=== PATIENT | female | born 1950 | race Asian ===

== ENCOUNTER 2023-10-21 10:03 | Inpatient (IN) | payer OTHER, MEDICAID ==
[~2023-10-21] VITALS: Ht 172.7 cm; Wt 74.4 kg
[2023-10-21] MEDS ORDERED: dilTIAZem HCL IVP 5 MG/ML VIAL ONE (10:18)
[2023-10-21 10:19] VITALS: BP_SYST 114; PULSE 202; RESP 21; TEMP 97.7; O2SAT 99
[2023-10-21] MEDS: dilTIAZem HCL IVP 5 MG/ML VIAL IVP ONE ×2 (10:22→11:29)
[2023-10-21] MEDS: DILTIAZEM HCL 60 MG TABLET PO ONE (10:36)
[2023-10-21 11:03] LABS: BASOPHILS % (AUTO) 0.4 % (0.0-2.0); EOSINOPHILS # (AUTO) 0.1 K/uL (0.0-0.4); HEMATOCRIT 42.1 % (36-48); LYMPHOCYTES # (AUTO) 1.8 K/uL (1.0-5.5); MEAN CORPUSCULAR HEMOGLOBIN 30 pg (27-31); MEAN CORPUSCULAR HGB CONC 33 % (32-36); MEAN CORPUSCULAR VOLUME 89 fL (79.0-98.0); MONOCYTES # (AUTO) 0.6 K/uL (0.0-1.0); MONOCYTES % (AUTO) 9.4 % (1.7-9.3); NEUTROPHILS # (AUTO) 3.7 K/uL (1.8-7.7); NEUTROPHILS % (AUTO) 59.2 % (40.0-70.0); PLATELET COUNT (AUTO) 357 K/uL (130-430); RED BLOOD CELL COUNT(AUTO) 4.71 MIL/uL (4.2-6.2); RED CELL DISTRIBUTION WIDTH 13.6 % (9.0-15.0); WHITE BLOOD COUNT (AUTO) 6.3 K/uL (4.8-10.8)
[2023-10-21 11:21] LABS: PROTHROMBIN TIME 10.4 SECS (9.5-12.5)
[2023-10-21 11:40] LABS: ALANINE AMINOTRANSFERASE 22 U/L (12-78); ALBUMIN 2.9 g/dL (3.4-4.8); ANION GAP 12 (5-15); ASPARTATE AMINOTRANSFERASE 13 U/L (10-37); CALCIUM 8.4 mg/dL (8.4-11.0); CARBON DIOXIDE 24 mmol/L (23-29); CHLORIDE 108 mmol/L (98-107); CREATININE 0.73 mg/dL (0.55-1.30); GLUCOSE 145 mg/dL (74-106); POTASSIUM 3.6 mmol/L (3.5-5.1); SODIUM SERUM 144 mmol/L (136-145); TOTAL BILIRUBIN 0.4 mg/dL (0.0-1.0); UREA NITROGEN, BLOOD 13 mg/dL (8-21)
[2023-10-21 11:42] LABS: BILIRUBIN,DIRECT 0.1 mg/dL (0.0-0.3)
[2023-10-21] MEDS ORDERED: ONDANSETRON HCL 4 MG/2 ML VIAL IVP PRN (12:45)
[2023-10-21] MEDS ORDERED: MUPIROCIN 2% TOPICAL OINTMENT 22 GM NS PRN (12:45)
[2023-10-21] MEDS ORDERED: POTASSIUM CHLORIDE 20 MEQ TABLET.ER PO PRN (12:45)
[2023-10-21] MEDS ORDERED: DOCUSATE SODIUM 100 MG CAPSULE PO PRN (12:45)
[2023-10-21] MEDS ORDERED: MORPHINE 2 MG/ML INJ. SYRINGE IVP PRN ×2 (12:45)
[2023-10-21] MEDS ORDERED: MAGNESIUM SULFATE 50 ML IV PRN (12:45)
[2023-10-21] MEDS ORDERED: LORazepam 2 MG/ML VIAL IVP PRN (12:45)
[2023-10-21] MEDS ORDERED: ACETAMINOPHEN 325 MG TABLET PO PRN (12:45)
[2023-10-21] MEDS ORDERED: ROSU10TA72 PO (13:59)
[2023-10-21] MEDS ORDERED: NITR0.4T47 SL (13:59)
[2023-10-21] MEDS ORDERED: OLME5TAB29 PO (13:59)
[2023-10-21] MEDS: DIGOXIN 0.5 MG/2 ML AMP IVP ONE (14:30)
[2023-10-21] MEDS ORDERED: AMMONIA 1 EA TOWELETTE INH ONE (19:43)
[2023-10-21 21:00] VITALS: BP_SYST 111; PULSE 87; RESP 12; RESP 18; TEMP 98.4; O2SAT 96; O2SAT 97
[2023-10-21 22:00] VITALS: BP_SYST 123; PULSE 97; RESP 19; O2SAT 96
[2023-10-21] MEDS: HEPARIN SODIUM,PORCINE 5,000 UNITS/ML VIAL SUBCUT SCH (22:52)
[2023-10-21 23:00] VITALS: BP_SYST 118; PULSE 95; RESP 23; O2SAT 96
[2023-10-22] VITALS (25 sets, daily range): BP systolic 88–133; PULSE 82–132; RESP 13–26; TEMP 98.4–99.1; O2SAT 92–100
[2023-10-22 06:10] LABS: BASOPHILS % (AUTO) 0.4 % (0.0-2.0); EOSINOPHILS # (AUTO) 0.2 K/uL (0.0-0.4); EOSINOPHILS % (AUTO) 1.8 % (0.0-4.0); HEMATOCRIT 40.8 % (36-48); HEMOGLOBIN 13.6 g/dL (12.0-16.0); LYMPHOCYTES % (AUTO) 23.1 % (20.5-51.5); MEAN CORPUSCULAR HEMOGLOBIN 30 pg (27-31); MEAN CORPUSCULAR HGB CONC 33 % (32-36); MEAN CORPUSCULAR VOLUME 90 fL (79.0-98.0); MONOCYTES # (AUTO) 0.8 K/uL (0.0-1.0); MONOCYTES % (AUTO) 9.1 % (1.7-9.3); NEUTROPHILS # (AUTO) 5.6 K/uL (1.8-7.7); NEUTROPHILS % (AUTO) 65.6 % (40.0-70.0); PLATELET COUNT (AUTO) 349 K/uL (130-430); RED BLOOD CELL COUNT(AUTO) 4.55 MIL/uL (4.2-6.2); RED CELL DISTRIBUTION WIDTH 13.4 % (9.0-15.0); WHITE BLOOD COUNT (AUTO) 8.5 K/uL (4.8-10.8)
[2023-10-22 06:49] LABS: ANION GAP 8 (5-15); CALCIUM 8.2 mg/dL (8.4-11.0); CARBON DIOXIDE 26 mmol/L (23-29); CHLORIDE 110 mmol/L (98-107); GLUCOSE 126 mg/dL (74-106); POTASSIUM 3.6 mmol/L (3.5-5.1); SODIUM SERUM 144 mmol/L (136-145); UREA NITROGEN, BLOOD 19 mg/dL (8-21)
[2023-10-22] MEDS ORDERED: ACETAMINOPHEN 500 MG TABLET PO PRN ×2 (08:00)
[2023-10-22] MEDS ORDERED: FLU VACC QS2023-24(6MOS UP)/PF 0.5 ML/SYR SYRINGE I.M. PRN (09:00)
[2023-10-22] MEDS: DIGOXIN 0.5 MG/2 ML AMP IVP ONE ×3 (09:49→22:04)
[2023-10-22] MEDS: APIXABAN 2.5 MG TABLET PO ONE (09:55)
[2023-10-22] MEDS: APIXABAN 2.5 MG TABLET PO SCH (22:05)
[2023-10-23] VITALS (24 sets, daily range): BP systolic 94–148; PULSE 78–146; RESP 14–26; TEMP 98.1–98.9; O2SAT 91–99
[2023-10-23] MEDS: ACETAMINOPHEN 500 MG TABLET PO PRN (02:50)
[2023-10-23] MEDS: ZOLPIDEM TARTRATE 5 MG TABLET PO PRN (02:51)
[2023-10-23 04:34] LABS: BASOPHILS % (AUTO) 0.3 % (0.0-2.0); EOSINOPHILS # (AUTO) 0.2 K/uL (0.0-0.4); EOSINOPHILS % (AUTO) 2.3 % (0.0-4.0); HEMATOCRIT 38.9 % (36-48); LYMPHOCYTES # (AUTO) 1.8 K/uL (1.0-5.5); LYMPHOCYTES % (AUTO) 20.5 % (20.5-51.5); MEAN CORPUSCULAR HEMOGLOBIN 30 pg (27-31); MEAN CORPUSCULAR HGB CONC 34 % (32-36); MEAN CORPUSCULAR VOLUME 89 fL (79.0-98.0); MONOCYTES # (AUTO) 0.8 K/uL (0.0-1.0); MONOCYTES % (AUTO) 9.1 % (1.7-9.3); NEUTROPHILS % (AUTO) 67.8 % (40.0-70.0); PLATELET COUNT (AUTO) 336 K/uL (130-430); RED BLOOD CELL COUNT(AUTO) 4.36 MIL/uL (4.2-6.2); RED CELL DISTRIBUTION WIDTH 13.5 % (9.0-15.0); WHITE BLOOD COUNT (AUTO) 8.9 K/uL (4.8-10.8)
[2023-10-23 05:25] LABS: ANION GAP 9 (5-15); CALCIUM 8.7 mg/dL (8.4-11.0); CARBON DIOXIDE 26 mmol/L (23-29); CHLORIDE 106 mmol/L (98-107); CREATININE 0.78 mg/dL (0.55-1.30); GLUCOSE 150 mg/dL (74-106); POTASSIUM 3.8 mmol/L (3.5-5.1); SODIUM SERUM 141 mmol/L (136-145); UREA NITROGEN, BLOOD 18 mg/dL (8-21)
[2023-10-23] MEDS ORDERED: DEXTROSE 50% JECT 50 ML DISP.SYRIN IVP PRN (09:00)
[2023-10-23] MEDS: DIGOXIN 0.5 MG/2 ML AMP IVP ONE (11:42)
[2023-10-23] MEDS: DILTIAZEM HCL 60 MG TABLET PO ONE (11:45)
[2023-10-23] MEDS: INSULIN LISPRO SLIDING SCALE 100 UNITS/ML, 3 ML VIAL (humaLOG) SUBCUT PRN (11:58)
[2023-10-23 12:06] LABS: HEPATITIS C VIRUS AB Non Reactive (Non Reactive)
[2023-10-23] MEDS: DILTIAZEM HCL 60 MG TABLET PO SCH (14:43)
[2023-10-24] VITALS (20 sets, daily range): BP systolic 91–135; PULSE 74–140; RESP 15–26; TEMP 97.6–98.2; O2SAT 91–100
[2023-10-24 04:33] LABS: BASOPHILS % (AUTO) 0.2 % (0.0-2.0); EOSINOPHILS # (AUTO) 0.3 K/uL (0.0-0.4); EOSINOPHILS % (AUTO) 3.5 % (0.0-4.0); HEMATOCRIT 40.5 % (36-48); HEMOGLOBIN 13.5 g/dL (12.0-16.0); LYMPHOCYTES # (AUTO) 1.7 K/uL (1.0-5.5); LYMPHOCYTES % (AUTO) 21.4 % (20.5-51.5); MEAN CORPUSCULAR HEMOGLOBIN 30 pg (27-31); MEAN CORPUSCULAR HGB CONC 33 % (32-36); MEAN CORPUSCULAR VOLUME 90 fL (79.0-98.0); MONOCYTES # (AUTO) 0.6 K/uL (0.0-1.0); MONOCYTES % (AUTO) 7.2 % (1.7-9.3); NEUTROPHILS # (AUTO) 5.3 K/uL (1.8-7.7); NEUTROPHILS % (AUTO) 67.7 % (40.0-70.0); PLATELET COUNT (AUTO) 314 K/uL (130-430); RED BLOOD CELL COUNT(AUTO) 4.52 MIL/uL (4.2-6.2); RED CELL DISTRIBUTION WIDTH 13.3 % (9.0-15.0); WHITE BLOOD COUNT (AUTO) 7.8 K/uL (4.8-10.8)
[2023-10-24 04:57] LABS: ANION GAP 4 (5-15); CALCIUM 8.6 mg/dL (8.4-11.0); CARBON DIOXIDE 29 mmol/L (23-29); CHLORIDE 106 mmol/L (98-107); CREATININE 0.72 mg/dL (0.55-1.30); GLUCOSE 128 mg/dL (74-106); POTASSIUM 3.9 mmol/L (3.5-5.1); SODIUM SERUM 139 mmol/L (136-145); UREA NITROGEN, BLOOD 16 mg/dL (8-21)
[2023-10-24] MEDS: DIGOXIN 0.25 MG TABLET PO ONE (10:39)
[2023-10-24] MEDS: METOPROLOL TARTRATE 5 MG/5 ML VIAL ONE (13:00)
[2023-10-24] MEDS: METOPROLOL TARTRATE 5 MG/5 ML VIAL IVP ONE (13:01)
[2023-10-24] MEDS: DILTIAZEM HCL 90 MG TABLET PO SCH (13:02)
[2023-10-25 08:00] VITALS: BP_SYST 130; PULSE 90; RESP 18; TEMP 96.9; O2SAT 94
[2023-10-25 08:36] LABS: BASOPHILS % (AUTO) 0.2 % (0.0-2.0); EOSINOPHILS # (AUTO) 0.3 K/uL (0.0-0.4); HEMATOCRIT 40.9 % (36-48); HEMOGLOBIN 13.8 g/dL (12.0-16.0); LYMPHOCYTES # (AUTO) 1.9 K/uL (1.0-5.5); LYMPHOCYTES % (AUTO) 29.4 % (20.5-51.5); MEAN CORPUSCULAR HEMOGLOBIN 30 pg (27-31); MEAN CORPUSCULAR HGB CONC 34 % (32-36); MEAN CORPUSCULAR VOLUME 89 fL (79.0-98.0); MONOCYTES # (AUTO) 0.5 K/uL (0.0-1.0); MONOCYTES % (AUTO) 8.3 % (1.7-9.3); NEUTROPHILS # (AUTO) 3.6 K/uL (1.8-7.7); NEUTROPHILS % (AUTO) 57.1 % (40.0-70.0); PLATELET COUNT (AUTO) 323 K/uL (130-430); RED CELL DISTRIBUTION WIDTH 13.4 % (9.0-15.0); WHITE BLOOD COUNT (AUTO) 6.3 K/uL (4.8-10.8)
[2023-10-25 08:47] LABS: ANION GAP 6 (5-15); CALCIUM 8.5 mg/dL (8.4-11.0); CARBON DIOXIDE 29 mmol/L (23-29); CHLORIDE 105 mmol/L (98-107); GLUCOSE 138 mg/dL (74-106); POTASSIUM 3.9 mmol/L (3.5-5.1); SODIUM SERUM 140 mmol/L (136-145); UREA NITROGEN, BLOOD 17 mg/dL (8-21)
[2023-10-25] MEDS: DIGOXIN 0.25 MG TABLET PO SCH (09:28)
[2023-10-25] MEDS ORDERED: APIX5TAB PO (09:36)
[2023-10-25] MEDS ORDERED: DIGO250T PO (09:36)
[2023-10-25] MEDS ORDERED: DILT240C91 PO (09:36)
[2023-10-25 11:12] VITALS: BP_SYST 130; PULSE 90; RESP 18; TEMP 96.9; O2SAT 94
[2023-10-25 11:17] VITALS: BP_SYST 139; PULSE 94; RESP 18; TEMP 98.4; O2SAT 98
[2023-10-25 12:00] VITALS: BP_SYST 130; PULSE 78; RESP 18; TEMP 97.4; O2SAT 95
[2023-10-25 15:48] VITALS: BP_SYST 130; PULSE 78; RESP 18; TEMP 97.4; O2SAT 95
== END 2023-10-25 16:00 | disposition home or self-care (01) | DRG 308 ==
LOC: SED 10:03 → SIC 12:46 → STU 10-24 17:54
PROVIDERS: ADMIT General Practice; ATTEND General Practice
DX: I48.0 Paroxysmal atrial fibrillation (principal); J96.00 Acute respiratory failure, unspecified whether with hypoxia or hypercapnia; E44.1 Mild protein-calorie malnutrition; E78.5 Hyperlipidemia, unspecified; E83.41 Hypermagnesemia; E87.8 Other disorders of electrolyte and fluid balance, not elsewhere classified; E88.09 Other disorders of plasma-protein metabolism, not elsewhere classified; E11.9 Type 2 diabetes mellitus without complications; Z68.24 Body mass index [BMI] 24.0-24.9, adult; Z79.01 Long term (current) use of anticoagulants; Z79.899 Other long term (current) drug therapy; I10 Essential (primary) hypertension
CPT/HCPCS: 36415; 71045; 80048; 80076; 82948; 83037; 83735; 83880; 84443; 84484; 85025; 85610; 85730; 86706; 86803; 87081; 93005; 93306; 96374; 96376; 99291; G0378; J1160; J1644; J3475; J3490; J7060

== ENCOUNTER 2023-10-31 10:11 | Inpatient (IN) | payer OTHER, MEDICAID ==
[~2023-10-31] VITALS: Ht 152.4 cm; Wt 75.3 kg
[~2023-10-31 10:11] MED LIST: APIX5TAB PO; DIGO250T PO; DILT240C91 PO; NITR0.4T47 SL; OLME5TAB29 PO; ROSU10TA72 PO
[2023-10-31 10:15] VITALS: BP_SYST 154; PULSE 133; RESP 22; TEMP 98.3; O2SAT 98
[2023-10-31 10:35] LABS: BASOPHILS % (AUTO) 0.5 % (0.0-2.0); EOSINOPHILS # (AUTO) 0.4 K/uL (0.0-0.4); EOSINOPHILS % (AUTO) 4.7 % (0.0-4.0); HEMATOCRIT 45.7 % (36-48); HEMOGLOBIN 15.2 g/dL (12.0-16.0); LYMPHOCYTES # (AUTO) 2.5 K/uL (1.0-5.5); LYMPHOCYTES % (AUTO) 29.6 % (20.5-51.5); MEAN CORPUSCULAR HEMOGLOBIN 30 pg (27-31); MEAN CORPUSCULAR HGB CONC 33 % (32-36); MEAN CORPUSCULAR VOLUME 91 fL (79.0-98.0); MONOCYTES # (AUTO) 0.5 K/uL (0.0-1.0); MONOCYTES % (AUTO) 5.8 % (1.7-9.3); NEUTROPHILS # (AUTO) 5.1 K/uL (1.8-7.7); NEUTROPHILS % (AUTO) 59.4 % (40.0-70.0); PLATELET COUNT (AUTO) 382 K/uL (130-430); RED BLOOD CELL COUNT(AUTO) 5.05 MIL/uL (4.2-6.2); RED CELL DISTRIBUTION WIDTH 13.6 % (9.0-15.0); WHITE BLOOD COUNT (AUTO) 8.6 K/uL (4.8-10.8)
[2023-10-31] MEDS: DILTIAZEM HCL 60 MG TABLET PO ONE (10:36)
[2023-10-31] MEDS: dilTIAZem HCL IVP 5 MG/ML VIAL IVP ONE (10:36)
[2023-10-31 11:14] LABS: ANION GAP 7 (5-15); CARBON DIOXIDE 28 mmol/L (23-29); CHLORIDE 103 mmol/L (98-107); CREATININE 0.84 mg/dL (0.55-1.30); GLUCOSE 182 mg/dL (74-106); POTASSIUM 3.8 mmol/L (3.5-5.1); SODIUM SERUM 138 mmol/L (136-145); UREA NITROGEN, BLOOD 12 mg/dL (8-21)
[2023-10-31] MEDS ORDERED: LORazepam 2 MG/ML VIAL IVP PRN (12:15)
[2023-10-31] MEDS ORDERED: HYDROcodone/ACETAMIN 10-325 MG TAB PO PRN (12:15)
[2023-10-31] MEDS ORDERED: HYDROcodone/ACETAMIN 5-325 MG TAB (NORCO/ VICODIN) PO PRN (12:15)
[2023-10-31] MEDS ORDERED: ACETAMINOPHEN 325 MG TABLET PO PRN ×2 (12:15→13:45)
[2023-10-31] MEDS ORDERED: ONDANSETRON HCL 4 MG/2 ML VIAL IVP PRN (12:15)
[2023-10-31 14:43] VITALS: BP_SYST 121; PULSE 82; RESP 16; TEMP 98.6
[2023-10-31 15:45] VITALS: O2SAT 97
[2023-10-31] MEDS: AMIODARONE HCL 200 MG TABLET PO ONE (16:18)
[2023-10-31 16:19] VITALS: BP_SYST 121; PULSE 81; RESP 18; TEMP 97.6; O2SAT 95
[2023-10-31] MEDS: DIPHENHYDRAMINE HCL 25 MG CAPSULE PO ONE (17:42)
[2023-10-31] MEDS: RIVAROXABAN 10 MG TABLET PO SCH (17:47)
[2023-10-31 20:00] VITALS: BP_SYST 119; PULSE 88; RESP 16; TEMP 98.1; O2SAT 95
[2023-10-31 20:30] VITALS: O2SAT 96
[2023-10-31] MEDS: AMIODARONE HCL 200 MG TABLET PO SCH (21:23)
[2023-10-31] MEDS: METOPROLOL TARTRATE 25 MG TABLET PO SCH (21:24)
[2023-10-31] MEDS ORDERED: DIPHENHYDRAMINE HCL 25 MG CAPSULE PO PRN (21:30)
[2023-10-31] MEDS ORDERED: traZODone HCL 50 MG TABLET (DESYREL) PO PRN (21:30)
[2023-10-31] MEDS ORDERED: DEXTROSE 50% JECT 50 ML DISP.SYRIN IVP PRN (21:30)
[2023-11-01] VITALS: BP_SYST 105; PULSE 115; RESP 16; TEMP 98; O2SAT 96
[2023-11-01] MEDS: LORATADINE 10 MG TABLET PO SCH (00:15)
[2023-11-01 05:36] LABS: BASOPHILS % (AUTO) 0.1 % (0.0-2.0); EOSINOPHILS # (AUTO) 0.6 K/uL (0.0-0.4); EOSINOPHILS % (AUTO) 7.8 % (0.0-4.0); HEMATOCRIT 40.8 % (36-48); HEMOGLOBIN 13.7 g/dL (12.0-16.0); LYMPHOCYTES # (AUTO) 1.7 K/uL (1.0-5.5); LYMPHOCYTES % (AUTO) 23.6 % (20.5-51.5); MEAN CORPUSCULAR HEMOGLOBIN 30 pg (27-31); MEAN CORPUSCULAR HGB CONC 34 % (32-36); MEAN CORPUSCULAR VOLUME 90 fL (79.0-98.0); MONOCYTES # (AUTO) 0.7 K/uL (0.0-1.0); NEUTROPHILS # (AUTO) 4.4 K/uL (1.8-7.7); NEUTROPHILS % (AUTO) 59.5 % (40.0-70.0); PLATELET COUNT (AUTO) 356 K/uL (130-430); RED BLOOD CELL COUNT(AUTO) 4.55 MIL/uL (4.2-6.2); RED CELL DISTRIBUTION WIDTH 13.6 % (9.0-15.0); WHITE BLOOD COUNT (AUTO) 7.4 K/uL (4.8-10.8)
[2023-11-01 06:05] LABS: ALANINE AMINOTRANSFERASE 21 U/L (12-78); ALBUMIN 2.8 g/dL (3.4-4.8); ANION GAP 7 (5-15); ASPARTATE AMINOTRANSFERASE 11 U/L (10-37); CALCIUM 8.5 mg/dL (8.4-11.0); CARBON DIOXIDE 28 mmol/L (23-29); CHLORIDE 106 mmol/L (98-107); GLUCOSE 143 mg/dL (74-106); POTASSIUM 3.9 mmol/L (3.5-5.1); SODIUM SERUM 141 mmol/L (136-145); TOTAL BILIRUBIN 0.4 mg/dL (0.0-1.0); TOTAL PROTEIN, SERUM 6.5 g/dL (6.4-8.3); UREA NITROGEN, BLOOD 16 mg/dL (8-21)
[2023-11-01 08:30] VITALS: BP_SYST 142; PULSE 159; RESP 18; TEMP 99; O2SAT 95
[2023-11-01 08:37] VITALS: PULSE 96
[2023-11-01 09:30] VITALS: O2SAT 95
[2023-11-01 12:00] VITALS: BP_SYST 144; PULSE 131; RESP 16; TEMP 97.8; O2SAT 97
[2023-11-01] MEDS ORDERED: METOPROLOL TARTRATE 5 MG/5 ML VIAL IVP PRN ×2 (12:15→16:15)
[2023-11-01] MEDS: AMIODARONE HCL 200 MG TABLET PO ONE (12:50)
[2023-11-01] MEDS: predniSONE 20 MG TABLET PO ONE (12:50)
[2023-11-01 16:12] VITALS: BP_SYST 140; PULSE 129; RESP 20; TEMP 97.5; O2SAT 95
[2023-11-01] MEDS: METOPROLOL TARTRATE 50 MG TABLET PO SCH (16:35)
[2023-11-01] MEDS: INSULIN LISPRO SLIDING SCALE 100 UNITS/ML, 3 ML VIAL (humaLOG) SUBCUT PRN (17:40)
[2023-11-01] MEDS: AMIODARONE HCL 200 MG TABLET PO SCH (21:20)
[2023-11-02 00:25] VITALS: BP_SYST 116; PULSE 110; RESP 16; TEMP 97.6; O2SAT 95
[2023-11-02 07:38] LABS: ANION GAP 8 (5-15); CALCIUM 8.6 mg/dL (8.4-11.0); CARBON DIOXIDE 28 mmol/L (23-29); CHLORIDE 105 mmol/L (98-107); CREATININE 0.87 mg/dL (0.55-1.30); GLUCOSE 126 mg/dL (74-106); POTASSIUM 3.8 mmol/L (3.5-5.1); SODIUM SERUM 141 mmol/L (136-145); UREA NITROGEN, BLOOD 17 mg/dL (8-21)
[2023-11-02 07:59] LABS: BASOPHILS % (AUTO) 0.4 % (0.0-2.0); EOSINOPHILS # (AUTO) 0.4 K/uL (0.0-0.4); EOSINOPHILS % (AUTO) 3.5 % (0.0-4.0); HEMATOCRIT 38.7 % (36-48); HEMOGLOBIN 12.9 g/dL (12.0-16.0); LYMPHOCYTES # (AUTO) 2.3 K/uL (1.0-5.5); LYMPHOCYTES % (AUTO) 23.1 % (20.5-51.5); MEAN CORPUSCULAR HEMOGLOBIN 30 pg (27-31); MEAN CORPUSCULAR HGB CONC 33 % (32-36); MEAN CORPUSCULAR VOLUME 89 fL (79.0-98.0); MONOCYTES # (AUTO) 0.7 K/uL (0.0-1.0); NEUTROPHILS # (AUTO) 6.6 K/uL (1.8-7.7); PLATELET COUNT (AUTO) 348 K/uL (130-430); RED BLOOD CELL COUNT(AUTO) 4.34 MIL/uL (4.2-6.2); RED CELL DISTRIBUTION WIDTH 13.5 % (9.0-15.0)
[2023-11-02 08:29] VITALS: BP_SYST 125; PULSE 93; RESP 18; TEMP 97.6; O2SAT 95
[2023-11-02] MEDS ORDERED: predniSONE 20 MG TABLET PO SCH (09:00)
[2023-11-02] MEDS: predniSONE 20 MG TABLET PO SCH (09:13)
[2023-11-02 09:15] VITALS: O2SAT 95
[2023-11-02 12:29] VITALS: BP_SYST 126; PULSE 104; RESP 17; TEMP 98.5; O2SAT 94
[2023-11-02] MEDS: DIGOXIN 0.5 MG/2 ML AMP IVP ONE (14:45)
[2023-11-02] MEDS: METOPROLOL TARTRATE 50 MG TABLET PO SCH (15:00)
[2023-11-02 16:02] VITALS: BP_SYST 130; PULSE 94; RESP 17; TEMP 97.9; O2SAT 94
[2023-11-02 20:00] VITALS: BP_SYST 121; PULSE 82; RESP 17; TEMP 97.6; O2SAT 95
[2023-11-03] VITALS: BP_SYST 124; PULSE 87; RESP 18; TEMP 97.4; O2SAT 94
[2023-11-03 06:29] LABS: BASOPHILS % (AUTO) 0.4 % (0.0-2.0); EOSINOPHILS # (AUTO) 0.5 K/uL (0.0-0.4); EOSINOPHILS % (AUTO) 4.8 % (0.0-4.0); HEMOGLOBIN 12.8 g/dL (12.0-16.0); LYMPHOCYTES # (AUTO) 2.5 K/uL (1.0-5.5); LYMPHOCYTES % (AUTO) 25.3 % (20.5-51.5); MEAN CORPUSCULAR HEMOGLOBIN 30 pg (27-31); MEAN CORPUSCULAR HGB CONC 34 % (32-36); MEAN CORPUSCULAR VOLUME 90 fL (79.0-98.0); MONOCYTES # (AUTO) 0.6 K/uL (0.0-1.0); MONOCYTES % (AUTO) 6.3 % (1.7-9.3); NEUTROPHILS # (AUTO) 6.3 K/uL (1.8-7.7); NEUTROPHILS % (AUTO) 63.2 % (40.0-70.0); PLATELET COUNT (AUTO) 341 K/uL (130-430); RED BLOOD CELL COUNT(AUTO) 4.24 MIL/uL (4.2-6.2); RED CELL DISTRIBUTION WIDTH 13.6 % (9.0-15.0)
[2023-11-03 06:51] LABS: ANION GAP 3 (5-15); CALCIUM 8.6 mg/dL (8.4-11.0); CARBON DIOXIDE 30 mmol/L (23-29); CHLORIDE 105 mmol/L (98-107); CREATININE 1.07 mg/dL (0.55-1.30); GLUCOSE 111 mg/dL (74-106); POTASSIUM 4.1 mmol/L (3.5-5.1); SODIUM SERUM 138 mmol/L (136-145); UREA NITROGEN, BLOOD 16 mg/dL (8-21)
[2023-11-03 08:05] VITALS: BP_SYST 130; PULSE 78; RESP 18; TEMP 97.8; O2SAT 99
[2023-11-03 08:10] VITALS: O2SAT 99
[2023-11-03] MEDS: DIGOXIN 0.25 MG TABLET PO SCH (08:32)
[2023-11-03 12:49] VITALS: BP_SYST 128; PULSE 68; RESP 17; TEMP 98.3; O2SAT 99
[2023-11-03] MEDS: METOPROLOL SUCCINATE 50 MG TAB.SR.24H (TOPROL XL) PO ONE (14:45)
[2023-11-03] MEDS ORDERED: RIVA20TA PO (15:23)
[2023-11-03] MEDS ORDERED: DIPH25CA83 PO (15:23)
[2023-11-03] MEDS ORDERED: AMIO200T6 PO (15:23)
[2023-11-03] MEDS ORDERED: METO-306 PO (15:23)
[2023-11-03] MEDS ORDERED: METF-379 PO (15:25)
[2023-11-03 15:50] VITALS: BP_SYST 125; PULSE 74; RESP 18; TEMP 97.6; O2SAT 99
[2023-11-03 16:43] VITALS: BP_SYST 137; PULSE 96; RESP 17; TEMP 97.9; O2SAT 94
[2023-11-03] MEDS ORDERED: AMIODARONE HCL 200 MG TABLET PO SCH (21:00)
[2023-11-04] MEDS ORDERED: DIGOXIN 0.125 MG TABLET PO SCH (09:00)
[2023-11-04] MEDS ORDERED: METOPROLOL SUCCINATE 50 MG TAB.SR.24H (TOPROL XL) PO SCH (09:00)
== END 2023-11-03 17:45 | disposition home health service (06) | DRG 310 ==
LOC: SED 10:11 → STU 12:12
PROVIDERS: ADMIT Internal Medicine; ATTEND Internal Medicine
DX: I48.20 Chronic atrial fibrillation, unspecified (principal); I48.4 Atypical atrial flutter; I47.10 Supraventricular tachycardia, unspecified; I10 Essential (primary) hypertension; E78.5 Hyperlipidemia, unspecified; E11.9 Type 2 diabetes mellitus without complications; Z79.899 Other long term (current) drug therapy; L50.0 Allergic urticaria; T45.515A Adverse effect of anticoagulants, initial encounter
CPT/HCPCS: 36415; 71045; 80048; 80053; 80162; 82948; 83880; 84484; 85025; 87081; 93005; 96374; 99285; G0378; J1160; J3490; J7512; Q0163